=== PATIENT | male | born 1960 | race Caucasian/White ===

== ENCOUNTER → 2017-02-16 | Outpatient (CLI) | payer BC | END | disposition home or self-care (01) | LOC: C.RDSM 15:15 | PROVIDERS: ATTEND Physical Medicine & Rehabilitation Sports Medicine | DX: M25.511 Pain in right shoulder (principal) ==

== ENCOUNTER → 2017-04-30 | Outpatient (CLI) | payer BC ==
[~2017-04-30] MED LIST: GADAVIST IV PRN
--- NOTE | 2017-04-30 09:45 | DIAGNOSTIC IMAGING REPORT ---
MRI brain BRAIN COMBO FOR IAC CLINICAL HISTORY: LEFT ASYMMETRIC SENSORINEURAL HEARING LOSS TECHNIQUE: Memory multi axial acquisition COMPARISON STUDY: None FINDINGS: Diffusion-weighted images are normal. Signal characteristics of the cerebellar as well as cerebral hemispheres are within normal limits. Internal auditory canals are symmetric. There is no evidence for abnormal postcontrast enhancement. IMPRESSION: Normal study Electronically signed by: William Stuart M.D. 04/30/2017 9:44 AM Dictated Date/Time: 04/30/2017 9:13 AM
== END | disposition home or self-care (01) ==
LOC: C.OPENMRI 07:45
DX: H90.5 Unspecified sensorineural hearing loss (principal)